=== PATIENT | female | born 1980 | race Caucasian/White ===

== ENCOUNTER 2017-12-15 11:47 | Emergency (ER) | payer MEDICAID, OTHER, SELFPAY ==
[~2017-12-15] VITALS: Ht 172.7 cm; Wt 66.2 kg
[2017-12-15] MEDS ORDERED: MELO15TA24 PO (12:19)
[2017-12-15] MEDS ORDERED: HYDR-3245 PO (12:20)
[2017-12-15] MEDS ORDERED: BACL-19 PO (12:21)
[2017-12-15] MEDS ORDERED: SODIUM CHLORIDE 0.9% 1,000ML IVBOLUS ONE (13:00)
[2017-12-15] MEDS ORDERED: ONDANSETRON ODT 4 MG PO ONE (13:00)
[2017-12-15] MEDS ORDERED: SODIUM CHLORIDE FLUSH 10ML SYR IVF ONE (13:00)
[2017-12-15 13:02] LABS: BASOPHILS # (AUTO) 0.04 x10^3/uL (0-0.1); BASOPHILS % (AUTO) 0 % (0-1); EOSINOPHILS # (AUTO) 0.04 x10^3/uL (0-0.4); EOSINOPHILS % (AUTO) 0 % (1-7); LYMPHOCYTES # (AUTO) 1.56 x10^3/uL (1-3.4); LYMPHOCYTES % (AUTO) 11 % (22-44); MD NO; MEAN CORPUSCULAR VOLUME 91.3 fL (80-100); MEAN PLATELET VOLUME 8.3 fL (7.4-10.4); MONOCYTES # (AUTO) 0.46 x10^3/uL (0.2-0.8); MONOCYTES % (AUTO) 3 % (2-9); NEUTROPHILS # (AUTO) 12.21 x10^3/uL (1.8-6.8); NEUTROPHILS % (AUTO) 85 % (42-75); PLATELET COUNT 129 x10^3/uL (130-400); RED BLOOD COUNT 3.19 x10^6/uL (3.82-5.3); RED CELL DISTRIBUTION WIDTH 13.4 % (9.6-15.2)
[2017-12-15 13:14] LABS: ALBUMIN 3.1 g/dL (3.4-5.0); ANION GAP 7 mmol/L (5-15); CALCIUM 8.1 mg/dL (8.5-10.1); CHLORIDE 111 mmol/L (98-107); CREATININE 0.64 mg/dL (0.55-1.02)
[2017-12-15] MEDS ORDERED: ONDANSETRON ODT 4 MG ONE (13:35)
[2017-12-15 14:45] VITALS: BP 106/47
[2017-12-15] MEDS ORDERED: OXYcodone/APAP 5/325MG TABLET ONE (14:49)
[2017-12-15] MEDS ORDERED: OXYcodone/APAP 5/325MG TABLET PO ONE (15:00)
== END 2017-12-15 15:23 | disposition home or self-care (01) ==
LOC: ED 15:15
DX: O20.0 Threatened abortion (principal); O99.331 Smoking (tobacco) complicating pregnancy, first trimester
CPT/HCPCS: 36415; 76801; 80048; 82040; 84702; 85025; 86901; 96360; 99285; J7030; Q0162